=== PATIENT | male | born 1970 | race Two or more races ===

== ENCOUNTER 2018-01-19 21:08 | Emergency (ER) | payer MEDICAID ==
[~2018-01-19] VITALS: Ht 162.6 cm; Wt 83.9 kg
[2018-01-19 21:35] VITALS: BP 109/59
[2018-01-20] MEDS ORDERED: ACETAMINOPHEN/CODEINE#3 (300/30mg) TAB PO ONE (03:00)
== END 2018-01-20 03:53 | disposition home or self-care (01) ==
LOC: ER 21:08
DX: S92.351A Displaced fracture of fifth metatarsal bone, right foot, initial encounter for closed fracture (principal); W22.8XXA Striking against or struck by other objects, initial encounter; Y93.89 Activity, other specified; Y99.8 Other external cause status; Y92.89 Other specified places as the place of occurrence of the external cause
CPT/HCPCS: 73630